=== PATIENT | male | born 1980 | race Caucasian/White ===

== ENCOUNTER 2016-06-03 22:25 | Emergency (ER) | payer SELFPAY ==
[2016-06-04 00:52] LABS: ALB/GLOB RATIO 0.8 (>1.0); ALBUMIN 3.5 gm/dL (3.5-5.7); CALCIUM 8.7 mg/dL (8.6-10.3); MAGNESIUM 2.1 mg/dL (1.9-2.7)
[2016-06-04 01:40] LABS: ABSOLUTE NEUTROPHIL COUNT 5.1 K/mm3 (1.8-7.7); BASO # 0.1 K/mm3 (0.0-0.2); BASO % 0.6 % (0.2-1.0); EOS # 0.5 (0.0-0.5); EOS % 5.6 % (0.9-2.9); HEMATOCRIT 43.2 % (32.0-52.0); HEMOGLOBIN 14.5 gm/l (14.0-18.0); IMM NEUT% 0.4 % (0-1); LYMPH # 1.7 (1.0-4.8); LYMPH % 19.6 % (15-45); MEAN CELL VOLUME 86.4 fl (80.0-94.0); MEAN CORPUSCULAR HGB CONC 33.6 g/dl (33.0-37.0); MEAN PLATELET VOLUME 10.6 fl (7.4-10.4); MONO # 1.1 (0.0-0.8); MONO % 13.4 % (4-12); NEUT % 60.4 % (43-75); PLATELET COUNT 208 K/mm3 (130-400); RED CELL DISTRIBUTION WIDTH 14.2 % (11.5-14.5)
[2016-06-04] MEDS ORDERED: DOXYCYCLINE HYCLATE 100 MG TABLET ONE (01:41)
--- NOTE | 2016-06-04 08:31 | RAD ---
History: Headache with cough for one month. Comparison: None. Technique: 2 views Findings: Examination demonstrates a low inspiratory volume. Multilevel thoracic degenerative changes are observed. The heart size is normal for technique. No gross consolidation, effusion or pneumothorax is seen. The hilar and mediastinal structures are intact. Impression: 1. A low inspiratory volume. 2. No active intrathoracic process.
== END 2016-06-04 01:39 | disposition home or self-care (01) ==
LOC: ED 22:25
DX: R56.9 Unspecified convulsions (principal); R05 Cough; I25.2 Old myocardial infarction
CPT/HCPCS: 85025; 80053; 83735; 71020; 87804; 99283 ×2; A9270